=== PATIENT | male | born 1960 | race Caucasian/White ===

== ENCOUNTER 2022-11-19 06:28 | Emergency (ER) | payer OTHER, SELFPAY ==
--- NOTE | ~2022-11-19 | XR_ITS ---
EXAMINATION: XR chest 2V DATE: 11/19/2022 07:41 INDICATION: Hypertension. TECHNIQUE: Frontal and lateral views of the chest were obtained. COMPARISON: Chest 2 views 01/01/2009 FINDINGS: There is mild atelectasis in left lower lung zone. No pleural effusion or pneumothorax. The heart size is normal. There is a left chest wall pacer with leads in the right atrium and right vent ricle. There is mild chronic anterior wedging of multiple thoracic vertebral bodies. IMPRESSION: 1. Mild atelectasis in left lower lung zone. Reviewed, dictated and finalized at location A.
[2022-11-19 06:33] VITALS: BP 153/94; PULSE 79; RESP 18; TEMP 36.8; O2SAT 98
--- NOTE | 2022-11-19 06:40 | ECG_ITS ---
Measurements Intervals [place] Rate: 77 P: 64 MN: 214 QRS: 26 QRSD: 89 T: 42 QT: 351 QTc: 399 Interpretive Statements ELECTRONIC ATRIAL PACEMAKER ABNORMAL RHYTHM ECG NO PREVIOUS ECG AVAILABLE FOR COMPARISON Electronically Signed On 11-19-2022 7:36:01 CDT by Rashard Graham M.D.
[2022-11-19] MEDS: ASPIRIN 81 MG CHEWABLE TABLET 324 MG PO (06:53)
[2022-11-19 06:56] VITALS: BP 145/92; PULSE 74; RESP 15; O2SAT 97
[2022-11-19 07:22] LABS: Alanine Aminotransferase 42 U/L (6-50); Albumin Level 4.5 g/dL (3.5-5.1); Alkaline Phosphatase 76 U/L (38-126); Anion Gap 6 mmol/L (8-16); Aspartate Amino Transferase 28 U/L (17-59); Bilirubin,Total 1.1 mg/dL (0.2-1.3); Blood Urea Nitrogen 23 mg/dL (9-20); Calcium 9.1 mg/dL (8.4-10.2); Carbon Dioxide 27 mmol/L (22-30); Chloride 103 mmol/L (98-107); Estimated Glomerular Filt Rate > 60; Glucose 104 mg/dL (65-110); INR 0.9; Lipase 88 U/L (23-300); Potassium 4.4 mmol/L (3.4-5.0); Prothrombin Time 12.7 Seconds (11.1-14.7); Sodium 136 mmol/L (137-145)
[2022-11-19 07:23] LABS: Partial Thromboplastin Time 25.3 SECONDS (22.3-36.8)
[2022-11-19 07:33] LABS: NT Pro B Type Natriuretic Pept < 20 pg/mL (19.9-100); Troponin I < 0.012 ng/mL (0.000-0.034)
[2022-11-19 08:03] LABS: Basophils Absolute Auto 0.1 K/mm3 (0.0-0.1); Basophils Percent Auto 0.7 % (0.2-1.2); Eosinophils Absolute Auto 0.1 K/mm3 (0-0.3); Eosinophils Percent Auto 1.4 % (0-4.4); Hematocrit 50.7 % (42.0-52.0); Hemoglobin 17.2 g/dL (14.0-18.0); Immature Granulocyte Absolute 0.07 K/mm3 (0.00-0.031); Lymphocytes Percent Auto 13.7 % (18.3-44.2); Mean Corpuscular HGB Conc 33.9 g/dl (32-36); Mean Corpuscular Hemoglobin 32.1 pg (26-34); Mean Corpuscular Volume 94.6 fl (80-100); Mean Platelet Volume 9.7 fl (7.4-10.4); Monocytes Absolute Auto 0.7 K/mm3 (0.1-0.6); Monocytes Percent Auto 10.1 % (2.6-8.5); Neutrophils Absolute Auto 5.4 K/mm3 (1.3-6.7); Neutrophils Percent Auto 73.1 % (45.5-73.1); Platelet Count Result 237 k/mm3 (150-375); Red Blood Count 5.36 M/mm3 (4.6-6.20); Red Cell Distribution Width 12.3 % (11.5-14.5); White Blood Count 7.3 K/mm3 (4.5-10.0)
[2022-11-19 08:34] LABS: Influenza A QL RT-PCR Negative (Negative); Influenza B QL RT-PCR Negative (Negative); SARS-CoV-2 RNA PCR Negative (Negative)
--- NOTE | 2022-11-19 08:36 | ED.GENADULT ---
HPI - General Adult General Chief complaint: Unspecified Stated complaint: high blood pressure Time Seen by Provider: 11/19/22 07:01 History of Present Illness HPI narrative: Patient is a 62-year-old male who presents ER with concerns for elevated blood pressure. Woke up this morning his blood pressure was in the 200s systolic. He has taken his home medications. Upon arrival here her symptoms have normalized. He does report over the last 4 days he has been feeling weak and this was concerning him. No runny nose or sore throat or cough. No fevers or chills or sweats. He is without chest pain or chest pressure. He is Related Data Home Medications Medication Instructions Recorded Confirmed aspirin 81 mg tablet,delayed 81 mg PO DAILY 05/24/21 03/05/22 release (Adult Low Dose Aspirin) lisinopril 10 mg tablet 10 mg PO DAILY 05/24/21 03/05/22 Allergies Allergy/AdvReac Type Severity Reaction Status Date / Time No Known Allergies Allergy Verified 11/19/22 06:47 Review of Systems Review of Systems: All systems reviewed & are unremarkable except as noted in HPI and below Constitutional: Constitutional: Denies chills, Reports fatigue and Denies fever(s) Cardiovascular: Cardiovascular: Denies chest pain and Denies radiating jaw, neck or arm pain Respiratory: Respiratory: Denies cough and Denies dyspnea Gastrointestinal: Gastrointestinal: Denies abdominal pain, Denies nausea and Denies vomiting Genitourinary: Genitourinary: Denies dysuria and Denies urinary frequency Musculoskeletal: Musculoskeletal: Reports no additional musculoskeletal complaints Neurologic: Reports system reviewed and no additional complaints, except as documented [facility] Past Medical History Medical History (Updated 11/19/22 @ 09:01 by Norman Post MD) Hypertension Mixed hyperlipidemia Obstructive sleep apnea Pacemaker 2006 Surgical History Surgical History (Updated 05/24/21 @ 07:58 by Yvonne Navarro, SHARON) History of ear surgery left, 2001 History of hernia repair Family History Family History (Updated 05/24/21 @ 10:09 by Chantel Garcia MA) Father Acute myocardial infarction Depression Heart disease Hypertension Grandparent Acute myocardial infarction Cerebrovascular accident Depression Diabetes mellitus Heart disease Hypertension Mother Acute myocardial infarction Cerebrovascular accident Depression Diabetes mellitus Heart disease Hypertension Sibling Acute myocardial infarction Depression Heart disease Hypertension Social History Social History (Updated 05/24/21 @ 10:10 by Chantel Garcia MA) Smoking status: Former smoker Tobacco type: cigarettes Second hand tobacco smoke exposure: Yes Smoking end date: 04/01/06 Alcohol intake: never Substance use: never Substance use type: does not use Living arrangements: with roommate(s) Occupation/Education: occupation Gender identity (if verbalized by the patient): Male Sexual Orientation (if Verbalized by the Patient): Straight or Heterosexual Spiritual care concerns: No Agree to blood products: Yes Exam Narrative: GENERAL: Well-appearing, well-nourished, and in no acute distress. HEAD: Normocephalic, atraumatic. ENT: Mucous membranes moist. NECK: Supple. CHEST: Clear to auscultation. No respiratory distress. HEART: Regular rate and rhythm. Normal peripheral pulses. ABDOMEN: Soft, nontender, nondistended. EXTREMITIES: Normal range of motion. No edema. SKIN: Warm, dry, no rash. NEURO: Alert and oriented x3. PSYCH: Normal mood and affect. Course Course Emergency Course: Patient resting comfortably. Blood pressure normal during evaluation here. Informed of lab results. Discharge home. Vital Signs Vital signs: Vital Signs Temperature 98.2 F 11/19/22 06:33 Pulse Rate 79 11/19/22 06:33 Respiratory Rate 18 11/19/22 06:33 Blood Pressure 153/94 H 11/19/22 06:33 Pulse Ox
[2022-11-19 09:23] VITALS: BP 117/91; PULSE 70; RESP 20; O2SAT 100
== END 2022-11-19 09:24 | disposition home or self-care (01) ==
PROVIDERS: Emergency Provider Emergency Medicine; PCP Family Medicine Adolescent Medicine
DX: R53.83 Other fatigue (principal); I10 Essential (primary) hypertension; Z20.822 Contact with and (suspected) exposure to COVID-19; E78.2 Mixed hyperlipidemia; G47.33 Obstructive sleep apnea (adult) (pediatric); Z95.0 Presence of cardiac pacemaker; Z87.891 Personal history of nicotine dependence
CPT/HCPCS: 36415; 71046; 80053; 83690; 83880; 84484; 85025; 85610; 85730; 87502; 87635; 93005; 99284; A9270

== ENCOUNTER 2024-06-09 10:24 | Outpatient (CLI) | payer OTHER, SELFPAY ==
--- OUTSIDE RECORDS SUMMARY | 2024-06-09 11:50 | XMS_ITS | Clinical Summary ---
Author Organization [facility] [address] Address [address] [place] [address] Care Team Providers Care Floor Broker Name Role Phone Luis Arredondo MD Primary Care Prov ider Allergies No known active allergies Medications aspirin 81 mg tablet take 1 tablet by oral route every day 0 0 6 Active acetaminophen (TYLENOL EXTRA STRENGTH) 500 mg tablet 500 mg. 0 3 Active metoprolol XL (TOPROL-XL) 100 mg 24 hr tablet Take 0.5 tablets (50 mg total) by mouth daily 4 Active atorvastatin (LIPITOR) 20 mg tablet Take 1 tablet (20 mg total) by mouth daily 4 Active predniSONE (DELTASONE) 10 mg tablet 2 05/27/19 25 Discontinu ed(Patient Reported) ciprofloxacin-d exAMETHasone (CIPRODEX) otic suspension INSTILL 3 DROPS INTO BOTH EARS TWICE DAILY 4 05/27/19 25 Discontinu ed(Patient Reported) Active Problems Problem Noted Date Diagnosed Date Mixed hyperlipidemia 05/09/2021 SSS (sick sinus syndrome) ([facility]) 10/19/2019 Paresthesias 04/13/2019 Dizziness 06/04/2018 Dietary counseling 05/03/2017 Essential hypertension 02/08/2016 Overview (07/06/2016): Essential hypertension Dyspnea on exertion 10/12/2015 Overview (07/04/2016): Dyspnea on exertion Obstructive sleep apnea syndrome 10/12/2015 Overview (07/04/2016): Obstructive sleep apnea Snoring 10/12/2015 Overview (07/04/2016): Snoring Other chest pain 06/17/2015 Overview (07/06/2016): Chest pain in adult Presence of cardiac pacemaker 06/17/2015 Overview (10/28/2019): Medtronic Dual Pacemaker. Dx; SSS. DOI 06/30/[address] Burrell, chronic leads 01/03/2007. Carelink remote monitoring Q3 mo, office p acer checks Q1 yr. Resolved Problems Problem Noted Date Diagnosed Date Resolved Date Dyslipidemia 10/19/2019 08/24/2021 Encounters Date Type Department Care Team Description 05/27/2024 10:45 AM AGENCY SERVICE COORDINATOR Office Visit [facility] [address] [place] [phone] Dl Sosa MD Precordial pain (Primary Dx); MCNEILL (dyspnea on exertion); SSS (sick sinus syndrome) (HCC); Presence of cardiac pacemaker; Essential hypertension; History of tobacco abuse; Mixed hyperlipidemia 05/27/2024 10:00 AM AGENCY SERVICE COORDINATOR Ancillary Procedure [facility] [address] [place] [address] [address] [place] [phone] Presence of cardiac pacemaker (Primary Dx); SSS (sick sinus syndrome) (HCC) 05/15/2024 Telephone [facility] [address] [place] [address] Suite [facility] [place] [phone] Dl Sosa MD 05/15/2024 Orders Only [facility] [address] [place] [address] [address] [place] [phone] Dl Sosa MD Presence of cardiac pacemaker (Primary Dx); SSS (sick sinus syndrome) (HCC) from Last 3 Months Surgical History Surgery Date Site/Laterality Comments CARDIAC PACEMAKER PLACEMENT Cardiac pacemaker Medical History Medical History Date Comments Dietary counseling 05/03/2017 Cancer (HCC) Colon Family History Medical History Relation Name Comments Coronary artery disease Brother 2 Jack nary Artery Bypass Graft; Heart attack Father Myocardial Infa rction; Heart attack Mother Myocardial Infa rction; Relation Name Status Comments Brother 1 Alive Brother 2 Father Alive Mother Alive Social History Tobacco Use Types Packs/Day Years Used Date Smoking Tobacco: Former Smokeless Tobacco: Never Tobacco Cessation:Counseling Given: Not Answered Alcohol Use Standard Drinks/Week Comments No 0 (1 standard drink = 0.6 oz pur e alcohol) Sex and Gender Information Value Date Recorded Sex Assigned at Not on file Legal Sex Male 1:56 AM AGENCY SERVICE COORDINATOR Gender Identity Not on file Sexual Orientation Not on file Obstetrics History Last Filed Vital Signs Vital Sign Reading Time Taken Comments Blood Pressure 128/76 05/27/2024 10:38 AM AGENCY SERVICE COORDINATOR Pulse 80 05/27/2024 10:38 AM AGENCY SERVICE COORDINATOR Temperature - - Respiratory Rate - - Oxygen Saturation 96% 05/27/2024 10:38 AM AGENCY SERVICE COORDINATOR Inhaled Oxygen Concentration - - Weight 83.5 kg (184 lb 1.6 oz) 05/27/2024 10:38 AM AGENCY SERVICE COORDINATOR Height 172.7 cm (5' 8 ) 05/27/2024 10:38 AM AGENCY SERVICE COORDINATOR Body Mass Index 27.99 05/27/2024 10:38 AM AGENCY SERVICE COORDINATOR Plan of Treatment Health Maintenance Due Date Last Done Comments Colon Cancer Screening-Colonoscopy 1961 Depression Screening 1961 Hepatitis C Screening 1961 Prostate Cancer Screening-PSA 1961 DTaP/Tdap/Td Vaccine (1 - Tdap) 02/24/1972 Hepatitis B Screening 1979 Regular Well Visit/Exam 18-64 1979 Zoster Vaccine (1 of 2) 2011 Influenza Vaccine (#1) 2023 02/09/2022 Pneumococcal vaccine <65 Aged Out No longer eligible based on patient's age to complete this topic Medical Devices Implanted Type Area Regulatory Affairs Assistant Device Identifier Shelf Expiration Date Model / Serial / Lot Pacemaker-2015 Implanted:06/29 by Radha Burrell MD (Quantity not on file) Pacemaker Chest Medtronic SSS / / CHRONIC LEADS 01/03/2007 Procedures Procedure Name Priority Date/Time Associated Diagnosis Comments POCT LIPID PANEL Routine 05/27/2024 10:3 3 AM AGENCY SERVICE COORDINATOR SSS (sick sinus syndrome) (HCC) Presence of cardiac pacemaker Mixed hyperlipidemia DEVICE CHECK - IN OFFICE Routine 025 10:00 AM AGENCY SERVICE COORDINATOR SSS (sick sinus syndrome) (HCC) ELECTROCARDIOGRAM REPORT Routine 05/27/2024 Precordial pain from Last 3 Months Results * POCT lipid panel (05/27/2024 10:33 AM AGENCY SERVICE COORDINATOR) HDL, POC 30 mg/dL Triglycerides, POC 91 mg/dL LDL Cholesterol POC 74 mg/dL Chol/HDL Ratio, POC 2.5 Non-HDL Cholesterol, POC 93 mg/dL Cholesterol Total, POC 123 mg/dL Capillary blood 05/27/2024 1 0:33 AM AGENCY SERVICE COORDINATOR Dl Sosa MD POINT OF CARE TEST ORDERABLES Fi nal Result * DEVICE CHECK - IN OFFICE (05/27/2024 10:00 AM AGENCY SERVICE COORDINATOR) Anatomical Region Laterality Modality Other Narrative 05/27/2024 3:53 PM AGENCY SERVICE COORDINATOR Medtronic Dual Pacemaker. Dx; SSS. DOI 06/30/[address] Burrell, chronic leads 01/03/2007. Carelink remote monitoring Q3 mo, office pacer checks Q1 yr. Office AAI<>DDD Pacemaker evaluation demonstrated normal device function. Seeing Dr Sosa today also. Left pectoral incision well healed without signs of infection noted. Battery function-2.75V, 29 months remaining battery life to [place]. Appropriate lead measurements noted. Presenting rhythm-APVS. Underlying SB 54 bpm. AP-80%, HAND PATCHER-4%. 51 mode switch episodes recorded, longest 22 seconds, iegm's oversensing artifact. No VHR episodes noted. Medications; ASA, Toprol XL. No programming changes made to device settings. See scanned report. Office pacemaker check expected in one year. Carelink remote f/u 08/26/2024. Alice Rapp, RN Santosh Patel MD [facility] PROC EDURES Final Result * Electrocardiogram Report (05/27/2024) 05/27/2024 Dl Sosa MD ECG ORDERABLES Final Result from Last 3 Months Insurance [employer] Care Teams Floor Broker Relationship Specialty Start Date End Date Luis Arredondo MD [address] [place] [address] PCP - General 06/29/16
--- OUTSIDE RECORDS SUMMARY | 2024-06-09 11:50 | XMS_ITS | Patient Health Summary ---
Author Organization [facility] [employer] Address [address] [place] [address] Care Team Providers Care Research Affiliate Name Role Phone Unavailable Primary Care Provider Unavailabl e Note from [facility],non-owned Affiliates and Associated Physician Practices is amultiple site organization consisting of ambulatory clinics and hospital sitesin [place], [place], [place]. This disclosure is being madepursuant to the Care Everywhere program and may not contain all information available regarding this patient. Last updated 17.[facility] [employer] Social History Tobacco Use Types Packs/Day Years Used Date Smoking Tobacco: Never Assessed Sex and Gender Information Value Date Recorded Sex Assigned at Not on file Gender Identity Not on file Sexual Orientation Not on file Procedures * SARS-COV-2 (COVID-19) IN HOUSE(Performed 01/17/2021) Performed for Pre-operative laboratory examination * SARS-COV-2 (COVID-19) PANEL (SOIL)(Performed 01/17/2021) Performed for Pre-operative laboratory examination * SARS-COV-2 (COVID-19) IN HOUSE(Performed 01/03/2021) Performed for Pre-operative laboratory examination * SARS-COV-2 (COVID-19) PANEL (SOIL)(Performed 01/03/2021) Performed for Pre-operative laboratory examination Results * SARS-COV-2 (COVID-19) INTERNAL (01/17/2021 10:05 AM CDT) Only the most recent of2 resultswithin the time period is included. COVID-19 PCR Not detected Not detected 01/18/2021 9:36 AM CDT [facility] Microbiology SPECIMEN FROM NASOPHARYNGEAL STRUCTURE / Unknown Collection / Unknown 01/17/2021 10:05 AM CDT 01/17/2021 10:05 AM CDT Narrative [facility] - 01/18/2021 9:36 AM CDT This nucleic acid amplification assay performance was validated by [facility]. This test has been authorized by the Food and Drug administration (FDA)under an Emergency Use Authorization (EUA). This test has been validated in accordance with the FDA's guidance document Policy for Diagnostic Testing in Laboratories Certified to perform High Complexity Testing under CLIA prior to Emergency Use Authorization for Coronavirus Disease-2019 during the Public Health Emergency issued on May 30, 2019. FDA independent review of this validation is pending. This test is only authorized for the duration of time the declaration that circumstances exist justifying the authorization of emergency use of in vitro diagnostic tests for detection of SARS-CoV-2 virus and/or diagnosis of COVID-19 infection under section 564(b)(1) of the Act, 21 U.S.C 360bbb-3 (b)(1), unless the authorization is terminated or revoked sooner. Fact Sheets for this EUA assay are available upon request. Lonny Gary MD LAB - MICROBIOLOGY O RDERABLES [facility] [address] [place] [address], [facility] [phone]
--- OUTSIDE RECORDS SUMMARY | 2024-06-09 11:50 | XMS_ITS | Clinical Summary ---
Author Organization [facility] [employer] Address [address] [place] [address] Care Team Providers Care Slip Operator Name Role Phone Unavailable Primary Care Provider Unavailabl e Source Comments [facility],non-owned Affiliates and Associated Physician Practices is amultiple site organization consisting of ambulatory clinics and hospital sitesin [place], [place], [place] and [place]. This disclosure is being madepursuant to the Care Everywhere program and may not contain all information available regarding this patient. Last updated 17.[facility] [employer] Social History Tobacco Use Types Packs/Day Years Used Date Smoking Tobacco: Never Assessed Sex and Gender Information Value Date Recorded Sex Assigned at Not on file Gender Identity Not on file Sexual Orientation Not on file Plan of Treatment Health Maintenance Due Date Last Done Comments COLOGUARD (AGES 45-75) - COL ON CA SCREENING 1961 COLON MONITORING 1961 COLONOSCOPY - COLON CA SCREENING 1961 CT COLONOGRAPHY - COLON CA SCREENING 1961 Colorectal Cancer Screening 1961 FIT - COLON CA SCREENING 1961 FLEX SIG - COLON CA SCREENING 1961 LIPID TESTING 1961 HIV SCREENING 02/24/1976 HEPATITIS C SCREENING 02/19/1979 DTAP/TDAP/TD VACCINES (1 - Tdap) 02/24/1980 PNEUMOCOCCAL VACCINE 50+ (1 of 1 - PCV) 2011 ZOSTER VACCINE (1 of 2) 2011 COVID-19 VACCINE (1 - 2023-2 5 season) 2023 INFLUENZA VACCINE (#1) 2023 DEPRESSION SCREENING 04/01/2024 Respiratory Syncytial Virus (RSV) Vaccine Pt: or over 60 yrs (1 - 1-dose 75+ series) 02/24/2036 HEPATITIS B VACCINE Aged Out No longe r eligible based on patient's age to complete this topic HIB VACCINE Aged Out No longer eligi ble based on patient's age to complete this topic HPV VACCINE Aged Out No longer eligi ble based on patient's age to complete this topic MENINGOCOCCAL (Group B) VACCINE Aged Out No longer eligible based on patient's age to complete this topic MENINGOCOCCAL VACCINE Aged Out No gerhard dominga eligible based on patient's age to complete this topic PNEUMOCOCCAL VACCINE Aged Out No long er eligible based on patient's age to complete this topic
--- OUTSIDE RECORDS SUMMARY | 2024-06-09 11:50 | XMS_ITS | Encounter Summary ---
Author Organization [facility] Address [address] [address] Care Team Providers Care Tankman Name Role Phone Luis Arredondo MD Primary Care Prov ider Luis Arredondo MD Primary Care Prov ider Encounter Details Date Type Department Care Team (Late st Contact Info) Description 04/24/2016 Orders Only [facility] ProviderStacey MD [address] [place] [id number] Social History Tobacco Use Types Packs/Day Years Used Date Smoking Tobacco: Former Cigarettes Q uit: 04/01/2006 Alcohol Use Standard Drinks/Week Comments No 0 (1 standard drink = 0.6 oz pur e alcohol) Sex and Gender Information Value Date Recorded Sex Assigned at Not on file Legal Sex Male 1:56 AM SHELTER DIRECTOR Gender Identity Not on file Sexual Orientation Not on file documented as of this encounter Plan of Treatment Not on file documented as of this encounter Procedures Procedure Name Priority Date/Time Associated Diagnosis Comments CARDIOLOGY REPORT 04/24/2016 documented in this encounter Results * CARDIOLOGY REPORT (04/24/2016) Anatomical Region Laterality Modality Other Narrative 04/24/2016 Ordered by an unspecified provider. Historical Provider [facility] KANNAN BYRD Final Result documented in this encounter Visit Diagnoses Not on filedocumented in this encounter Care Teams Tankman Relationship Specialty Start Date End Date Luis Arredondo MD [address] [place] [address] PCP - General 06/29/16 Luis Arredondo MD [address] [place] [address] PCP - General 10/12/15 06/28/16 documented as of this encounter
--- OUTSIDE RECORDS SUMMARY | 2024-06-09 11:50 | XMS_ITS | Referral Summary ---
Author Organization [facility] Address [address] [place] [address] Care Team Providers Care Gas Meter Checker Name Role Phone Unavailable Primary Care Provider Unavailabl e Source Comments [facility],non-owned Affiliates and Associated Physician Practices is amultiple site organization consisting of ambulatory clinics and hospital sitesin [place], [place], [place] and [place]. This disclosure is being madepursuant to the Care Everywhere program and may not contain all information available regarding this patient. Last updated 17.[facility] [employer] Social History Tobacco Use Types Packs/Day Years Used Date Smoking Tobacco: Never Assessed Sex and Gender Information Value Date Recorded Sex Assigned at Not on file Gender Identity Not on file Sexual Orientation Not on file Plan of Treatment Not on file
--- OUTSIDE RECORDS SUMMARY | 2024-06-09 11:50 | XMS_ITS | Referral Summary ---
Author Organization [facility] [address] [place] [address] [address] [address] Care Team Providers Care Plate Conditioner Name Role Phone Luis Arredondo MD Primary Care Prov ider Encounters Date Type Department Care Team Description 05/27/2024 10:00 AM AUTOMOTIVE DIAGNOSTIC TECHNICIAN Ancillary Procedure [facility] Cardiology [address] [place] [address] [address] [place] [phone] Presence of cardiac pacemaker (Primary Dx); SSS (sick sinus syndrome) (HCC) 05/27/2024 10:45 AM AUTOMOTIVE DIAGNOSTIC TECHNICIAN Office Visit [facility] Medical [facility] Cardiology [address] [place] [address] [address] [place] [address] Dl Sosa MD Precordial pain (Primary Dx); MCNEILL (dyspnea on exertion); SSS (sick sinus syndrome) (HCC); Presence of cardiac pacemaker; Essential hypertension; History of tobacco abuse; Mixed hyperlipidemia 05/15/2024 Telephone [facility] Cardiology [address] [place] [address] [place], [place] [address] [address] Dl Sosa MD 05/15/2024 Orders Only [facility] Cardiology [address] [place] [address] [place] [phone] Dl Sosa MD Presence of cardiac pacemaker (Primary Dx); SSS (sick sinus syndrome) (HCC) from Last 3 Months Allergies No known active allergies Medications aspirin 81 mg tablet take 1 tablet by oral route every day 0 0 6 Active acetaminophen (TYLENOL EXTRA STRENGTH) 500 mg tablet 500 mg. 0 05/15/201 3 Active metoprolol XL (TOPROL-XL) 100 mg [...] Mixed hyperlipidemia 05/09/2021 SSS (sick sinus syndrome) ([facility]) 10/19/2019 Paresthesias 04/13/2019 Dizziness 06/04/2018 Dietary counseling [...] Diagnosed Date Resolved Date Dyslipidemia 10/19/2019 08/24/2021 Social History Tobacco Use Types Packs/Day Years Used Date Smoking Tobacco: Former Smokeless Tobacco: Never Tobacco Cessation:Counseling Given: Not Answered Alcohol Use Standard Drinks/Week Comments No 0 (1 standard drink = 0.6 oz pur e alcohol) Sex and Gender Information Value Date Recorded Sex Assigned at Not on file Legal Sex Male 1:56 AM AUTOMOTIVE DIAGNOSTIC TECHNICIAN Gender Identity Not on file Sexual Orientation Not on file Last Filed Vital Signs Vital Sign Reading Time Taken Comments Blood Pressure 128/76 05/27/2024 10:38 AM AUTOMOTIVE DIAGNOSTIC TECHNICIAN Pulse 80 05/27/2024 10:38 AM AUTOMOTIVE DIAGNOSTIC TECHNICIAN Temperature - - Respiratory Rate - - Oxygen Saturation 96% 05/27/2024 10:38 AM AUTOMOTIVE DIAGNOSTIC TECHNICIAN Inhaled Oxygen Concentration - - Weight 83.5 kg (184 lb 1.6 oz) 05/27/2024 10:38 AM AUTOMOTIVE DIAGNOSTIC TECHNICIAN Height 172.7 cm (5' 8 ) 05/27/2024 10:38 AM AUTOMOTIVE DIAGNOSTIC TECHNICIAN Body Mass Index 27.99 05/27/2024 10:38 AM AUTOMOTIVE DIAGNOSTIC TECHNICIAN Plan of Treatment Not on file Medical Devices Implanted Type Area Door Fitter Device Identifier Shelf Expiration Date Model / Serial / Lot Pacemaker-2015 Implanted:06/29 by Radha Burrell MD (Quantity not on file) Pacemaker Chest Medtronic SSS / / CHRONIC LEADS 01/03/2007 Procedures Procedure Name Priority Date/Time Associated Diagnosis Comments POCT LIPID PANEL Routine 05/27/2024 10:3 3 AM AUTOMOTIVE DIAGNOSTIC TECHNICIAN SSS (sick sinus syndrome) (HCC) Presence of cardiac pacemaker Mixed hyperlipidemia DEVICE CHECK - IN OFFICE Routine 025 10:00 AM AUTOMOTIVE DIAGNOSTIC TECHNICIAN SSS (sick sinus syndrome) (HCC) ELECTROCARDIOGRAM REPORT Routine 05/27/2024 Precordial pain from Last 3 Months Results * POCT lipid panel (05/27/2024 10:33 AM AUTOMOTIVE DIAGNOSTIC TECHNICIAN) HDL, POC 30 mg/dL Triglycerides, POC 91 mg/dL LDL Cholesterol POC 74 mg/dL Chol/HDL Ratio, POC 2.5 Non-HDL Cholesterol, POC 93 mg/dL Cholesterol Total, POC 123 mg/dL Capillary blood 05/27/2024 1 0:33 AM AUTOMOTIVE DIAGNOSTIC TECHNICIAN us Dl Sosa MD POINT OF CARE TEST ORDERABLES Fi nal Result * DEVICE CHECK - IN OFFICE (05/27/2024 10:00 AM AUTOMOTIVE DIAGNOSTIC TECHNICIAN) Anatomical Region Laterality Modality Other Narrative 05/27/2024 3:53 PM AUTOMOTIVE DIAGNOSTIC TECHNICIAN Medtronic Dual Pacemaker. Dx; SSS. DOI 06/30/2015 [...] Presenting rhythm-APVS. Underlying SB 54 bpm. AP-80%, DIRECTOR OF MATH-4%. 51 mode switch episodes recorded, longest 22 seconds, iegm's oversensing artifact. No VHR episodes noted. Medications; ASA, Toprol XL. No programming changes made to device settings. See scanned report. Office pacemaker check expected in one year. [facility] remote f/u 08/26/2024. Alice Rapp RN Santosh Patel MD [facility] PROC EDURES Final Result * Electrocardiogram Report (05/27/2024) 05/27/2024 Dl Sosa MD ECG ORDERABLES Final Result from Last 3 Months Insurance [employer] Care Teams Plate Conditioner Relationship Specialty Start Date End Date Luis Arredondo MD [address] [place] [address] PCP - General 06/29/16
--- NOTE | 2024-06-10 12:09 | P.PCNPFT_ITS ---
PFT Procedure Performed PFT Procedure Performed Plethysmography (Lung Vol) Diffusing Cap (DLCO) Flow Vol Loop Spirometry w/o Bronchodil PFT Interpretation Lung volumes were measured with the body plethysmography method. Lung volumes are unremarkable. Spirometry showed diminished expiratory flow rates but a n ormal FEV1 to FVC ratio 76%. No post bronchodilator study was conducted. Lung diffusion capacity is mildly reduced at 60% predicted. The flow volume loop is unremarkable. Impression: Nonspecific pattern. Mild reduction in lung diffusion capacity.
== END 2024-06-09 10:25 | disposition home or self-care (01) ==
LOC: ANHPFT 10:29
PROVIDERS: PCP Family Medicine Adolescent Medicine; Visit Provider Internal Medicine Cardiovascular Disease
DX: R94.2 Abnormal results of pulmonary function studies (principal); R06.09 Other forms of dyspnea; Z87.891 Personal history of nicotine dependence
CPT/HCPCS: 94375; 94726; 94729